=== PATIENT | male | born 1990 | race Caucasian/White ===

== ENCOUNTER 2020-09-01 02:44 | Emergency (ER) | payer OTHER ==
[2020-09-01] MEDS ORDERED: ZOFRAN4 MG PO (15:16)
[2020-09-01] MEDS ORDERED: PROTONIX40 MG PO (15:16)
[2020-09-01] MEDS ORDERED: BENTYL 20MG TAB20 MG PO (15:16)
== END 2020-09-01 04:04 | disposition left against medical advice (07) ==
LOC: ER1 02:44
DX: Z53.21 Procedure and treatment not carried out due to patient leaving prior to being seen by health care provider (principal)
CPT/HCPCS: J7030

== ENCOUNTER 2020-09-01 11:27 | Emergency (ER) | payer OTHER ==
[2020-09-01 12:52] LABS: HEMOGLOBIN 17.3 gm/dl (14.0-17.5); RED BLOOD COUNT 5.24 M/UL (4.20-5.50); WHITE BLOOD COUNT 12.4 K/UL (4.5-11.0)
[2020-09-01 13:16] LABS: BUN/CREATININE RATIO 14 (0-10)
[2020-09-01] MEDS ORDERED: BENTYL 20MG TAB20 MG PO (15:16)
[2020-09-01] MEDS ORDERED: ZOFRAN4 MG PO (15:16)
[2020-09-01] MEDS ORDERED: PROTONIX40 MG PO (15:16)
== END 2020-09-01 15:44 | disposition home or self-care (01) ==
LOC: ER1 11:27
PROVIDERS: Physician Assistant Medical
DX: R10.9 Unspecified abdominal pain (principal); R11.2 Nausea with vomiting, unspecified; R19.7 Diarrhea, unspecified; F17.210 Nicotine dependence, cigarettes, uncomplicated; M10.9 Gout, unspecified
CPT/HCPCS: 80053; 81001; 82150; 83690; 85025; 85652; 86140; 96374; 96375; 99284; C9113; J2405; Q9967

== ENCOUNTER 2020-10-13 12:49 | Emergency (ER) | payer OTHER ==
[~2020-10-13 12:49] MED LIST: BENTYL 20MG TAB20 MG PO; PROTONIX40 MG PO; ZOFRAN4 MG PO
[2020-10-13] MEDS ORDERED: PREDNISONE 50 M50 MG PO (13:28)
== END 2020-10-13 13:44 | disposition home or self-care (01) ==
LOC: ER1 12:49
DX: M10.9 Gout, unspecified (principal); F17.210 Nicotine dependence, cigarettes, uncomplicated; Z79.899 Other long term (current) drug therapy
CPT/HCPCS: 99283; J1885

== ENCOUNTER → 2020-11-03 | Outpatient (CLI) | payer OTHER ==
[~2020-11-03] MED LIST changes: +IBUPROFEN600 MG PO; +PREDNISONE 50 M50 MG PO
== END ==
LOC: KOH-I 11:37
DX: M79.672 Pain in left foot (principal); R60.9 Edema, unspecified
CPT/HCPCS: 73630

== ENCOUNTER → 2020-11-22 | Outpatient (CLI) | payer OTHER | LOC: KOH-I 10:16 | DX: M79.671 Pain in right foot (principal); M19.071 Primary osteoarthritis, right ankle and foot | CPT/HCPCS: 73630 ==

== ENCOUNTER 2020-12-25 12:20 | Emergency (ER) | payer OTHER ==
[~2020-12-25 12:20] MED LIST changes: -IBUPROFEN600 MG PO
[2020-12-25] MEDS ORDERED: IBUPROFEN600 MG PO (14:16)
== END 2020-12-25 14:28 | disposition home or self-care (01) ==
LOC: ER1 12:20
DX: S93.402A Sprain of unspecified ligament of left ankle, initial encounter (principal); S93.602A Unspecified sprain of left foot, initial encounter; X50.1XXA Overexertion from prolonged static or awkward postures, initial encounter; F17.200 Nicotine dependence, unspecified, uncomplicated
CPT/HCPCS: 73610; 73630; 99283

== ENCOUNTER 2021-02-07 04:03 | Emergency (ER) | payer OTHER ==
[~2021-02-07 04:03] MED LIST changes: +IBUPROFEN600 MG PO
[2021-02-07 06:05] LABS: BUN/CREATININE RATIO 14 (0-10); HEMOGLOBIN 16.3 gm/dl (14.0-17.5); RED BLOOD COUNT 4.87 M/UL (4.20-5.50)
[2021-02-07] MEDS ORDERED: FLOMAX 0.4 MG0.4 MG PO (06:45)
[2021-02-07] MEDS ORDERED: ONDANSETRON ODT4 MG SL (06:45)
[2021-02-07] MEDS ORDERED: PERCOCET 5/325 T1 EA PO (06:46)
== END 2021-02-07 07:09 | disposition home or self-care (01) ==
LOC: ER1 04:03
PROVIDERS: Physician Assistant Medical
DX: N13.2 Hydronephrosis with renal and ureteral calculous obstruction (principal); M24.851 Other specific joint derangements of right hip, not elsewhere classified; R74.01 Elevation of levels of liver transaminase levels; F17.210 Nicotine dependence, cigarettes, uncomplicated
CPT/HCPCS: 80053; 81001; 85025; 99284

== ENCOUNTER 2021-05-24 13:49 | Emergency (ER) | payer OTHER ==
[~2021-05-24 13:49] MED LIST changes: +FLOMAX 0.4 MG0.4 MG PO; +ONDANSETRON ODT4 MG SL; +PERCOCET 5/325 T1 EA PO
[2021-05-24 16:03] LABS: HEMOGLOBIN 16.7 gm/dl (14.0-17.5); RED BLOOD COUNT 4.95 M/UL (4.20-5.50); WHITE BLOOD COUNT 19.4 K/UL (4.5-11.0)
[2021-05-24 16:35] LABS: BUN/CREATININE RATIO 14 (0-10)
[2021-05-24] MEDS ORDERED: ZOFRAN ODT 4 MG4 MG SL (19:26)
[2021-05-24] MEDS ORDERED: BENTYL 20MG TAB20 MG PO (19:26)
== END 2021-05-24 19:58 | disposition home or self-care (01) ==
LOC: ER1 13:49
PROVIDERS: Physician Assistant
DX: R10.9 Unspecified abdominal pain (principal); R11.2 Nausea with vomiting, unspecified
CPT/HCPCS: 80053; 81001; 82150; 83690; 85025; 99284; Q9967

== ENCOUNTER 2021-09-25 09:17 | Emergency (ER) | payer OTHER ==
[~2021-09-25 09:17] MED LIST changes: +ZOFRAN ODT 4 MG4 MG SL
[2021-09-25 10:49] LABS: HEMOGLOBIN 16.5 gm/dl (14.0-17.5); RED BLOOD COUNT 5.19 M/UL (4.20-5.50); WHITE BLOOD COUNT 11.9 K/UL (4.5-11.0)
[2021-09-25 11:17] LABS: BUN/CREATININE RATIO 11 (0-10)
== END 2021-09-25 14:55 | disposition home or self-care (01) ==
LOC: ER1 09:17
PROVIDERS: Physician Assistant Medical
DX: R07.89 Other chest pain (principal); F17.200 Nicotine dependence, unspecified, uncomplicated
CPT/HCPCS: 71045; 80053; 82550; 82553; 84484; 85025; 85379; 93005; 96374; 96375; 99285; J2270; J2405

== ENCOUNTER 2021-12-11 18:00 | Emergency (ER) | payer OTHER ==
[2021-12-11 18:35] LABS: HEMOGLOBIN 15.2 gm/dl (14.0-17.5); RED BLOOD COUNT 4.61 M/UL (4.20-5.50); WHITE BLOOD COUNT 12.6 K/UL (4.5-11.0)
[2021-12-11 18:50] LABS: BUN/CREATININE RATIO 8 (0-10)
== END 2021-12-11 23:56 | disposition home or self-care (01) ==
LOC: ER1 18:00
PROVIDERS: Physician Assistant Medical
DX: R07.9 Chest pain, unspecified (principal); R74.8 Abnormal levels of other serum enzymes; F17.200 Nicotine dependence, unspecified, uncomplicated
CPT/HCPCS: 71045; 80053; 82550; 82553; 84484; 85025; 85379; 93005; 99285

== ENCOUNTER 2022-02-27 21:33 | Emergency (ER) | payer OTHER | END 2022-02-27 22:42 | disposition home or self-care (01) | LOC: ER1 21:33 | DX: S61.216A Laceration without foreign body of right little finger without damage to nail, initial encounter (principal); Z23 Encounter for immunization; W26.0XXA Contact with knife, initial encounter; Y92.009 Unspecified place in unspecified non-institutional (private) residence as the place of occurrence of the external cause | CPT/HCPCS: 12001; 73130; 90471; 90714; 99283 ==